=== PATIENT | male | born 1960 | race Caucasian/White ===

== ENCOUNTER → 2016-12-30 | Outpatient (CLI) | payer BC | END | disposition home or self-care (01) | LOC: GMAB 10:40 | PROVIDERS: ATTEND Family Medicine | DX: Z00.01 Encounter for general adult medical examination with abnormal findings (principal) ==

== ENCOUNTER → 2017-01-16 | Outpatient (CLI) | payer BC ==
--- NOTE | 2017-01-16 17:23 | RAD ---
EXAM DESCRIPTION: Knee,Right Complete CLINICAL HISTORY: 56 years,Male,RT KNEE PAIN COMPARISON: None FINDINGS: The right knee demonstrates no fractures, dislocations, or other acute bony abnormalities. The joint spaces demonstrate moderate loss of the lateral compartment with osteophyte changes which are mild. Minimal loss of medial compartment and mild loss in the patellofemoral compartment with squaring of the patella. The soft tissues are unremarkable. No joint effusion. IMPRESSION: Right knee demonstrates moderate lateral compartment and mild patellofemoral and medial compartment osteophytic changes but no acute findings Electronically signed by: Jim Nance MD 01/16/2017 5:22 PM CDT
--- NOTE | 2017-01-16 17:35 | RAD ---
Procedure: XR PELVIS 1-2 VIEWS Exam Date: 01/16/2017 Ordering Provider: THUY VILLALOBOS Clinical Indication: PAIN IN RT HIP Comparison: None FINDINGS: There is no fracture or dislocation. Articular surface of each is preserved. The sacroiliac joints are intact bilaterally. The pubic symphysis is normal. There are no lytic or sclerotic lesions. There are no suspicious calcifications. Impression: 1. No acute fracture or dislocation within the pelvis or either hip. Electronically signed by: Fabian Conley MD 01/16/2017 5:34 PM CDT
== END | disposition home or self-care (01) ==
LOC: RAD 08:25
PROVIDERS: ATTEND Orthopaedic Surgery
DX: M25.561 Pain in right knee (principal); M25.551 Pain in right hip

== ENCOUNTER 2019-07-07 05:31 | Day surgery (SDC) | payer BC ==
[2019-07-07] MEDS ORDERED: ceFAZolin SODIUM 1 GM VIAL ONE (07:00)
[2019-07-07] MEDS ORDERED: DEXAMETHASONE INJ 10 MG/ML VIAL ONE (07:00)
[2019-07-07] MEDS ORDERED: GLYCOPYRROLATE 0.2 MG/ML VIAL ONE (07:00)
[2019-07-07] MEDS ORDERED: SODIUM CHLORIDE 0.9% 50 ML VIAL ONE (07:00)
[2019-07-07] MEDS ORDERED: ePHEDrine SULF 50 MG/ML ONE (07:00)
[2019-07-07] MEDS ORDERED: PROPOFOL 200 MG/20 ML VIAL IV ONE (07:00)
[2019-07-07] MEDS ORDERED: raNITIdine HCL INJ 25 MG/ML VIAL ONE (07:00)
[2019-07-07] MEDS ORDERED: LIDOCAINE 1% 10 ML VIAL INJ ONE (07:00)
[2019-07-07] MEDS ORDERED: SCOPOLAMINE PATCH 1.5MG 1 EA TD ONE ×2 (07:13→07:54)
[2019-07-07] MEDS ORDERED: BUPIVACAINE 0.5% W/EPI 30 ML VIAL INJ ONE (08:20)
[2019-07-07] MEDS: LACTATED RINGERS 1,000 ML ONE ×2 (08:24→10:15)
[2019-07-07] MEDS ORDERED: ROCURONIUM BROMIDE 10 MG/ML VIAL ONE (08:57)
[2019-07-07] MEDS ORDERED: KETAMINE HCL 50 MG/ML SYG IV ONE (08:57)
[2019-07-07] MEDS ORDERED: MIDAZOLAM INJ 5 MG/5 ML VIAL ONE (08:57)
[2019-07-07] MEDS ORDERED: SUGAMMADEX SODIUM 200 MG/2 ML VIAL IV ONE (09:20)
[2019-07-07] MEDS ORDERED: ceFAZolin SODIUM 1 GM VIAL INJ ONE (09:30)
[2019-07-07] MEDS ORDERED: HYDROmorphone HCL INJ 2 MG/ML VIAL ONE (10:22)
[2019-07-07] MEDS: HYDROmorphone HCL INJ 2 MG/ML VIAL ONE ×2 (10:23→10:40)
--- NOTE | 2019-07-07 10:29 | OP ---
DATE OF PROCEDURE: 07/07/19 PREOPERATIVE DIAGNOSIS: 1. Recurrent incisional hernia. POSTOPERATIVE DIAGNOSIS: 1. Incarcerated recurrent incisional hernia. PROCEDURE: 1. Repair of recurrent incarcerated incision hernia with mesh. SURGEON: Adam Bowman MD. ANESTHESIA: General and local. FINDINGS: The superior portion of the previous wound had a hernia with incarcerated omentum and a moderately large hernia sac. The defect itself was only about 3 to 4 cm. A 2-1/2 inch Ventralex was used with 0 PDS to close. The incarcerated omentum was removed. ESTIMATED BLOOD LOSS: Minimal. SPECIMEN: Hernia sac and omentum. PLAN: Discharge. INDICATION: As stated. PROCEDURE: General anesthesia was induced. He was prepped and draped in sterile fashion. Incision was made at the superior portion of the previous incision. Subcutaneous tissues were taken down. We then identified the hernia sac. It was dissected out from the surrounding tissues and it went down to a more narrow neck fascial defect. We tried to get the omental adhesions from the edge off. The sac had been removed. There was a small amount of oozing, but this was controlled. Overall, it was better just to remove that incarcerated omentum, which we did a stick tie and a suture ligature and reduced it. I did a finger sweep ensuring there were no adhesions to the anterior abdominal wall. The 2-1/2 inch Ventralex was then placed. It was lying nice and flat on the abdominal wall. The wound was then closed with interrupted 0 PDS sutures, the center three grabbing the tail, trimming the tail and burying it with the final closure. It looked good. More local anesthesia was placed in the fascia. The wound was closed in two layers and dressing applied. He was awakened and taken to Recovery to be discharged. #[id number] MTDD
[2019-07-07] MEDS ORDERED: HYDROcodone 5MG/APAP 325MG 1 EA TAB ONE (11:15)
[2019-07-07 12:26] VITALS: BP 129/77; TEMP 98; O2SAT 97
== END 2019-07-07 12:15 | disposition home or self-care (01) ==
LOC: AMB 05:31
PROVIDERS: ATTEND Surgery
DX: K43.0 Incisional hernia with obstruction, without gangrene (principal); F32.9 Major depressive disorder, single episode, unspecified; E78.00 Pure hypercholesterolemia, unspecified; I10 Essential (primary) hypertension; G47.30 Sleep apnea, unspecified; K21.9 Gastro-esophageal reflux disease without esophagitis; Z85.46 Personal history of malignant neoplasm of prostate; Z91.041 Radiographic dye allergy status; Z79.82 Long term (current) use of aspirin; Z79.899 Other long term (current) drug therapy
CPT/HCPCS: 00832; 49566; 49568; A4216; J0690; J1100; J1170; J2250; J2780; J3490; J7120